=== PATIENT | female | born 1995 | race Two or more races ===

== ENCOUNTER → 2024-07-11 | Outpatient (CLI) | payer OTHER, SELFPAY ==
[2024-07-11 10:43] LABS: Potassium 5.2 mmol/L (3.5-5.1)
== END | disposition home or self-care (01) ==
LOC: LABSPEC 10:28
PROVIDERS: PCP Internal Medicine; Referring Provider Internal Medicine; Visit Provider Internal Medicine
DX: E87.5 Hyperkalemia (principal)
CPT/HCPCS: 84132

== ENCOUNTER → 2025-08-04 | Outpatient (CLI) | payer OTHER, SELFPAY ==
--- OUTSIDE RECORDS SUMMARY | 2025-08-04 09:39 | XMS RPT_ITS | CCD ---
Author Organization [facility] Inform ion Partnership [facility] Care Team Providers Care Watcher Automat Long Goods Name Role Phone Mariya Aparicio Referring Unavailable Mariya Aparicio Attending Unavailable Mariya Aparicio Primary Care Unavailable Unavailable Primary Care Provider OMA William Attending Unavailable Medications Current Medications Medication Drug Class(es) Dates Sig (Normalized) Sig (Original) adapalene 0.001 mg/mg / benzoyl peroxide 0.025 mg/mg topical gel (1 source) Retinoid Start: 05-08-2022 adapalene-benzoyl peroxide 0.1-2.5 % glwp Apply 1 Drop to affected area once daily. 05/08/2022 Active ZORYVE 0.3 % cream (1 source) Start: 07-04-2024 ZORYVE 0.3 % cream Apply 1 Drop to affected area once daily. 07/04/2024 Active Problems Problem Classification Problem Date Documented Da te Episodic/Chronic Fluid and electrolyte disorders (1 source) Hyperkalemia; Translations: [Hyperkalemia] Onset: 08-02-2024 Episodic Results Test Name Value Interpretation Reference Range Facil brennatj Serg 10-27-2024 CNOV Office Visit (OBGMEM ) JENNIFER GARDNER ([id number]) 1995 F Date Time Provider Department 10/27/24 7:25 AM OAM SÁNCHEZ OBJOSEPH During your visit today, we recorded the following information about you: Respiration Blood pressure Weight Last Period 18/minute 122/64 78.2 kg 10/03/24 Oma Sánchez MD 10/27/2024 10:44 AM Signed Summer is a 28 year old who presents for her 1st annual gynecologic exam without complaints. Thorough past history obtained/updated/revie wed with today's visit. Housing Relocation offered: Patient declines.. Still get period: Yes Qm x ~6dVB,moderate to heavy,mild dysmenorrhea (treated with NSAIDs) Bleeding amount bothersome: No Bleeding between periods: No Period symptoms: Acne; Breast tenderness; Cramps; Mood change; Pelvic pain control frequency: Sometimes (has used OCP in the past, mostly to manage acne) HPV vaccine: Yes; HPV:N/A Last pap smear: never History of abnormal pap: N/A Last mammogram: never Patient concerns for STD exposure: No. 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 History Comments: Sexual Activity: Never; No partner data on record Contraception: No contraception data on record Menstrual Tracking History Flowsheet Row Office Visit from 10/27/2024 in Obstetrics/Gynecology Period Cycle (Days) 24 Period Duration (Days) 6 Menstrual Flow Moderate PAST MEDICAL HISTORY Diagnosis Date Psoriasis PAST SURGICAL HISTORY Procedure Laterality Date TOOTH EXTRACTION x4 wisdom teeth FAMILY HISTORY Problem Relation Age of Onset Breast Cancer No Family History Cervical Cancer No Family History Ovarian cancer No Family History Uterine Cancer No Family History Colon Cancer No Family History Pancreatic Cancer No Family History Prostate Cancer No Family History SOCIAL HISTORY Social History Tobacco Use Smoking status: Never Smokeless tobacco: Never Vaping Use Vaping status: Never Used Substance Use Topics Alcohol use: Yes Comment: rare, social Drug use: Never REVIEW OF SYSTEMS Abdomen: No abdominal pain, nausea, vomiting, diarrhea, or constipation. Bladder: No dysuria, gross hematuria, urinary frequency, urinary urgency, or incontinence. Breast: No breast lumps, nipple d/c, overlying skin changes, redness or skin retraction and no SBE . Allergies and current medication updated:Yes SENSITIVE EXAM: The sensitive examination was discussed with the Patient or Patient's Authorized Planishing Press Operator. As applicable, any other physician, advance practice provider, medical student, or other health professional student that will be observing or involved in the sensitive examination for educational or training purposes was discussed with the Patient or Authorized Planishing Press Operator. The Patient or Authorized Planishing Press Operator has agreed to proceed with the sensitive examination. (Sensitive examination includes inspection and/or palpation of the breasts, pelvis, prostate and anorectal regions). EXAM: BP 122/64 Resp 18 Wt 172 lb 6.4 oz (78.2kg) LMP 10/03/2024 GENERAL: pleasant, female in no apparent distress HEENT: Normocephalic, atraumatic, mucus membranes moist, and no lesions NECK: Supple, full range of motion, no adenopathy, and thyroid normal DERMATOLOGY: Normal, without lesions, non-icteric, and non-hirsute BREAST: soft, non-tender, symmetric, no dominant mass, normal nipple-areolar complex, no lymphadenopathy, and no nipple discharge CHEST: Clear to auscultation, Normal inspiratory effort, and Regular rate and rhythm ABDOMEN: soft, non-tender, and no masses PELVIC: external genitalia normal, normal Bartholin's glands, urethra, [place]'s glands, no vulvar lesions, no cervical lesions, good vaginal support, physiologic discharge present, normal appearing perineal body and perianal region BIMANUAL: uterus normal size, shape and consistency, no adnexal masses, and non-tender RECTOVAGINAL: deferred. NEURO: alert and oriented x3,exam grossly non-focal EXTREMITIES: normal ASSESSMENT/PLAN: 1) Health maintenance: Pap done with reflex HPV. Mammogram starting age 40. Nutrition, exercise and routine health maintenance exams reviewed. Calcium/Vitamin D supplementation information provided. Colon cancer screening: start at age 45 HPV vaccine: completed series 2) Contraception: not yet sexually active- has done OCP in past to manage acne. 3) STD screening: Declined STD check. 4) Follow up one year or sooner as needed 5) Patient made aware results will be released to [facility] when available; if she is not active on [facility], she may contact office to get any results at her convenience (the office will contact (more content not included)... Normal [facility] PAP TESTon 10-27-2024 ADEQUACY Normal [facility] Comment on above: Order Comment: Speci men Type: FLUID SPECIMEN Ordering Facility: [facility] Address: [address] [place] [address] Result Comment: Sati sfactory for interpretation. Transformation zone present Performed By: #### L [id number] #### [facility] CLIA [id number] [address] [place] [address] [place] CASE REPORT Normal [facility] Comment on above: Order Comment: Speci men Type: FLUID SPECIMEN Ordering Facility: [facility] Address: [address] [place] [address] Result Comment: Gyne cologic Cytology Report Case: [id number] Authorizing Provider: Oma Sánchez MD Collected: 10/27/2024 08:20 AM Ordering Location: Obstetrics/Gynecology Received: 10/27/2024 11:37 AM First Screen: Vikas, Zully, CT, ASCP Specimen: Pap Test, ThinPrep, Cervix Performed By: #### L [id number] #### [facility] CLIA [id number] [address] [place] [address] [place] CLINICAL HISTORY, CYTOLOGY, SKEIN YARN DYER Routine Exam Normal [facility] Comment on above: Order Comment: Speci men Type: FLUID SPECIMEN Ordering Facility: [facility] Address: [address] [place] [address] Result Comment: Firs t Pap Smear Performed By: #### L [id number] #### [facility] CLIA [id number] [address] [place], [place] [id number] [place] FINAL PERFORMING LAB Normal [facility] Comment on above: Order Comment: Speci men Type: FLUID SPECIMEN Ordering Facility: [facility] Address: [address] [place] [address] Result Comment: Tech nical component, research associate quality control qc screening performed at [facility], [address] [place] [id number] CLIA# [id number] Diagnostic interpretation performed at [facility], [address] [place] [address] CLIA# [id number] Acid Tender: Chapo Bray M.D. Performed By: #### L [id number] #### [facility] CLIA [id number] [address] [place] [address] [place] INTERPRETATION, CYTOLOGY, SKEIN YARN DYER Normal [facility] Comment on above: Order Comment: Speci men Type: FLUID SPECIMEN Ordering Facility: [facility] Address: [address] [place] [address] Result Comment: Nega tive for intraepithelial lesion or malignancy. at 1159 EST Performed By: #### L [id number] #### [facility] CLIA [id number] [address] [place] [address] [place] LMP 10/03/2024 Normal [facility] Comment on above: Order Comment: Speci men Type: FLUID SPECIMEN Ordering Facility: [facility] Address: [address] [place] [address] Performed By: #### L [id number] #### [facility] CLIA [id number] [address] [place] [address] [place] PAP DISCLAIMER COMMENT The Pap Smear is a screening test for cervical cancer. False negative results occur with all screening tests, emphasizing the need for rescreening at recommended intervals, and clinical correlation. Normal [facility] Comment on above: Order Comment: Speci men Type: FLUID SPECIMEN Ordering Facility: [facility] Address: [address] [place] [address] Performed By: #### L [id number] #### [facility] CLIA [id number] [address] [place] [address] [place] PAP SUPERVISOR INCISING COMMENT This specimen has been analyzed by the ThinPrep Imaging System, an automated imaging and review system, which assists the laboratory in evaluating cells on ThinPrep Pap tests. Following automated imaging, selected cottrell from every slide are reviewed by a research associate quality control qc. Normal [facility] Comment on above: Order Comment: Speci men Type: FLUID SPECIMEN Ordering Facility: [facility] Address: [address] [place] [address] Performed By: #### L [id number] #### [facility] CLIA [id number] [address] [place] [address] [place] [address] [place] Potassiumon 07-11-2024 Potassium [Moles/Vol] 5.2 mmol/L High 3.5-5.1 [facility] Comment on above: Performed By: #### L [id number] #### [facility] [address] [place], [place], [address] SARS CoV 2 RNA(COVID 19), QU ALITATIVE NAATon 09-01-2021 SARS CoV 2 RNA Detected Abnormal NOT DETECTED [facility] Comment on above: Order Comment: 0 Result Comment: A Detected result indicates that the patient's specimen was positive for SARS-CoV-2 RNA. Test Method: Nucleic Acid Amplification Test including reverse shrimp packer polymerase chain reaction (RT-PCR) and shrimp packer mediated amplification (TMA). The test method meets the [place] Centers for Disease Control and prevention (CDC) pre departure and arrival requirement for viral test for COVID-19 dated October 07, 2020. Testing requirements for traveling may change with time. The patient is responsible for determining the test requirements for each nation while they are traveling. This test has been authorized by the FDA under an Emergency Use Authorization (EUA) for use by authorized laboratories. Please review the "Fact Sheets" and FDA authorized labeling available for health care providers and patients using the following websites: https://www.Amimon.com/home/Covid-19/HCP/NAAT/fact-sheet2 https://www.Amimon.[email or web address]/home/Covid-19/Patients/NAAT/ fact-sheet2 Due to the current public health emergency, [facility] is accepting samples from appropriate clinical sources collected using wide variety of swabs and transport media for COVID-19. Not detected test results derived from specimens received in non- commercially manufactured viral collection kits or those not yet authorized by FDA for COVID-19 testing should be cautiously evaluated and take extra precautions such as additional clinical monitoring, including collection of an additional specimen. Additional information about COVID-19 can be found at the [facility] website: [email or web address]. Performed By: #### 3 [id number] #### [facility] [address] [facility], [address] [place] [address] Molder Pipe Covering: Fredis Dotson MD Vital Signs Date Time Vital Sign Value Performing Clinician Ev guardado 10-27-2024 07:20-0500 Body weight 78.2 kg Oma Sánchez MD Work Phone: [facility] 10-27-2024 07:20-0500 Diastolic blood pressure 64 mm[Hg] Oma Sánchez MD Work Phone: [facility] 10-27-2024 07:20-0500 Respiratory rate 18 /min Oma Sánchez MD Work Phone: [facility] 10-27-2024 07:20-0500 Systolic blood pressure 122 mm[Hg] Oma Sánchez MD Work Phone: [facility] Encounters Encounter Date Encounter Type Care Provider Facility Start: 10-27-2024 End: 10-27-2024 ambulatory OMA SÁNCHEZ Facility:[facility] Start: 10-27-2024 End: 10-27-2024 Patient encounter procedure Oma Sánchez MD Work Phone: Obstetrics/Gynecology Comment on above: Encounter for gyneco logical examination (general) (routine) without abnormal findings (Primary Dx) Start: 10-27-2024 End: 10-27-2024 Patient encounter status Oma Sánchez MD Work Phone: [facility] Work Phone: Start: 07-11-2024 End: 07-11-2024 ambulatory [facility] Facility:[facility] Plan of Treatment Date Care Activity Detail Author Start: 11-12-2025 End: 11-12-2025 Patient encounter procedure 11/12/2025 9:00 AM EST Office Visit Obstetrics/Gynecology [address] [address] Oma Sánchez MD [address] [place] [address] Annual Obstetrics/Gynecolog y Comment on above: Annual Start: 05-11-2024 Covid-19 Vaccine ( season) Covid-19 Vaccine ( season) [facility] Start: 05-11-2024 Influenza vaccination Influenza Vacc ine (#1) [facility] Start: 06-21-2017 Urine microalbumin profile DTaP,Tdap,Td Vaccine (7 - Td or Tdap) [facility] Start: 2016 Screening for malign ant neoplasm of cervix Cervical Cancer Screening [facility] Start: 2013 Anxiety Screening Anxiety Screening [facility] Start: 2013 Depression Screening Depression Scre ening [facility] Start: 2013 Hepatitis C screening Hepatitis C Sc reening [facility] Start: 2013 HIV screening HIV Screening [facility] PAP TEST PAP TEST Lab Dick curry Encounter for gynecological examination (general) (routine) without abnormal findings 10/27/2024 8:20 AM EST [facility] Work Phone: Immunizations Immunization Date Immunization Notes Care Provider Fa cili 07-07-2021 influenza virus vacc ine, unspecified formulation Oma Sánchez MD Work Phone: [facility] 07-19-2012 human papilloma viru s vaccine, quadrivalent Oma Sánchez MD Work Phone: [facility] 02-27-2012 human papilloma viru s vaccine, quadrivalent Oma Sánchez MD Work Phone: [facility] 11-30-2011 human papilloma viru s vaccine, quadrivalent Oma Sánchez MD Work Phone: [facility] Payers Date Payer Category Payer Self-pay 2023 Private Health Insurance [facility] [employer] [id number] 2023 Unknown [id number] Unknown [id number] Social History Date Type Detail Facility Start: 10-27-2024 Tobacco smoking stat [facility] Never smoked tobacco [facility] Start: 10-27-2024 Tobacco use and exposure Smoke less tobacco non-user [facility] Start: 10-27-2024 Alcoholic beverage intake Curr ent drinker of alcohol (finding) [facility] Start: 10-27-2024 History of Social function [facility] Start: 10-27-2024 Tobacco use panel [facility] National Score (1-10 0), lower number is lower risk 73 [facility] Start: 10-27-2024 Alcohol Comment rare, social [facility] Start: 1995 Sex assigned at Female [facility] Start: 10-22-2024 Gender identity Identifies as female gender (finding) [facility] Instructions 10-27-2024 Patient Instructions Note Date & Type Note Facility 10-27-2024 Instructions Oma Sánchez MD - 10/27/2024 8:06 AM EST ACOG Screening Guidelines The following health screening schedule is recommended by the [employer] (ACOG). Some of these tests may be ordered or performed by your primary care doctor. Pap test screening The pap test looks at cells on the cervix (the opening from the vagina to the uterus) to look for cancer or pre-cancerous changes. These changes are caused by the human papillomavirus (HPV). Studies estimate that half of all women will test positive for this virus within 3 years of starting sexual activity. For young women with a normal immune system, 90% of HPV infections will resolve within 2 years. There is a vaccine available against some forms of HPV. This is recommended for girls and women age 9-45. For ages 9-14, two injections are given at 0 and 6 months. For ages 15-45, three injections are given at 0,2 and 6 months. Because this vaccine does not protect against all HPV types which can cause cervical cancer, women who received the vaccine still need pap tests. Pap smear screening should be started at age 21. The pap test should be done every 3 years from age 21-29. From age 30-65, pap smears can be done every 5 years if HPV test is negative or every 3 years if HPV testing is not done. For women over the age of 65, ACOG recommends against screening women who have had adequate prior screening and are not otherwise at high risk for cervical cancer. Women who have had a hysterectomy also do not need routine pap smear screening unless the pap smear was done for a cervical cancer or moderate to severe dysplasia. Breast cancer screening Mammogram should be performed every 1-2 years starting at age 40 and every year starting at age 50. Screening may be started earlier depending on family history. Cholesterol screening Lipid panel (cholesterol test) should be checked every 5 years starting at age 45. Diabetes screening Fasting glucose (blood sugar) test should be performed every 3 years starting at age 45. Colorectal cancer screening Starting at age 45, women should have a screening colonoscopy at least every 10 years. Screening may be started earlier depending on family history. Thyroid screening Thyroid function test (TSH) should be checked every 5 years starting at age 50. Bone mineral density screening All postmenopausal women age 65 and over and postmenopausal women with risk factors for osteoporosis should have a bone mineral density test performed. Risk factors include race, family history of osteoporosis, personal history of fractures, poor nutrition, smoking, heavy alcohol use, early menopause, low calcium intake and low body weight. Certain medical conditions and long-term use of some medications may also increase risk. Calcium and Vitamin D Supplementation (from the National Institutes of Health Office of Dietary Supplements 2011) Calcium is required by the body for blood vessel, muscle, hormone and nerve functioning. Most of the body's calcium is stored in the bones and teeth where it supports structure and function. Bone is continuously broken down and reformed. When bone breakdown exceeds formation, especially in postmenopausal women, bone loss can increase the risk of osteoporosis and fractures. In addition to low calcium intake, women who smoke, have a family history of osteoporosis, are thin, or , or who take certain medications such as cancer chemotherapy, seizure mediations and steroids are at increased risk of osteoporosis. The calcium requirements in women change with age. The National Institutes of Health (NIH) recommends: 1000mg elemental calcium for premenopausal women age 19-50 1200mg elemental calcium for postmenopausal women and all women over 50 Milk, yogurt, and cheese are rich natural sources of calcium and are the major food contributors in the [place]. For example, 8oz of milk (whole, lowfat or skim) contains about 300mg calcium, 8oz of yogurt contains 415mg. Nondairy sources include salmon and sardines and vegetables, such as [place]oese cabbage, kale, and broccoli. Foods fortified with calcium include many fruit juices, tofu and cereals. For more food calcium content information, visit http://ods.od.nih.gov/factsheets/calcium. Calcium supplements come in several different forms. Remember that the recommendations are for millgrams (mg) of elemental calcium which may be less than the total weight of the supplement. The amount of elemental calcium is required to be printed on the label. Calcium carbonate is the least expensive form. It must be taken on a full stomach to be properly absorbed. Some patients may experience gas or constipation. Calcium phosphate and calcium citrate may be taken either with or without food and tend to have less side effects but are generally more expensive. Because of its ability to neutralize stomach acid, calcium carbonate is found in some [id number] antacid products, such as Tums and Rolaids . Depending on its strength, each chewable pill or softchew provides 200 to 400 mg of elemental calcium. The percentage of calcium absorbed depends on the total amount of elemental calcium consumed at one time. Absorption is highest in doses <500mg. So a woman who takes 1,000mg/day of calcium from supplements should split the dose and take 500mg at two separate times during the day. Too much calcium can cause kidney stones, constipation, difficulty absorbing other nutrients and calcium buildup in blood vessels. Women under 50 should not exceed 2500mg/day (2000mg/day for women over 50) of calcium from food and supplements. Excessive alcohol and caffeine intake can inhibit absorption of calcium. Calcium can reduce the absorption of some medications if taken at the same time of day (bisphosphonates, thyroid medication, Phenytoin and other seizure medications, some antibiotics and iron supplements). Vitamin D promotes calcium absorption in the gut and maintains adequate blood levels of calcium and phosphate for normal bone growth and bone remodeling. Vitamin D also helps regulate cell growth as well as nerve, muscle and immune system function. Vitamin D is produced in the skin as a result of ultraviolet sunlight rays and must be altered in the liver and kidney to become its active form. Recommended intake according to the National Institutes of Health is 600 International Units (IU) for girls and women ages 1-70 and 800 IU for women over 70. Very few foods in nature contain vitamin D. The flesh of fatty fish (such as salmon, tuna, and mackerel) and fish liver oils are among the best sources. Small amounts of vitamin D are found in beef liver, cheese, mushrooms and egg yolks. Most people meet at least some of their vitamin D needs through exposure to sunlight. Season, time of day, length of day, cloud cover, smog, skin melanin content, and sunscreen are among the factors that affect UV radiation exposure and vitamin D synthesis. Despite the importance of the sun for vitamin D synthesis, it is prudent to limit exposure of skin to sunlight and avoid tanning beds. UV radiation is a carcinogen responsible for most of the estimated 1.5 million skin cancers that occur annually in the [place]. Lifetime cumulative UV damage to skin is also responsible for some age-associated dryness and other cosmetic changes. In supplements and fortified foods, vitamin D is available in two forms, D2 (ergocalciferol) and D3 (cholecalciferol). The two are equivalent at normal supplement doses. For women who require high supplement doses because of vitamin D deficiency, D3 may work better to raise blood levels. Some medications can prevent proper absorption of Vitamin D. These include laxatives, corticosteroids like prednisone, the seizure drugs phenobarbital and phenytoin, the weight-loss drug orlistat ( Xenical and AlliTM) and the cholesterol-lowering drug cholestyramine (Questran , LoCholest , and Prevalite ). Talk to your doctor about adjusting your recommended daily vitamin D dosage if you take these medications. You should not exceed 4000 mg of vitamin D supplementation daily unless specifically prescribed by your doctor. documented in this encounter [facility] Progress note 10-27-2024 Note Date & Type Note Facility 10-27-2024 Note HNO ID: [id number] Author: OMA SÁNCHEZ MD Service: ? Author Type: Physician Type: Progress Notes Filed: 10/27/2024 10:44 Note Text: Jennifer is a 28 year old who presents for her 1st annual gynecologic exam without complaints. Thorough past history obtained/updated/reviewed with today's visit. Housing Relocation offered: Patient declines.. Still get period: Yes Qm x ~6dVB,moderate to heavy,mild dysmenorrhea (treated with NSAIDs) Bleeding amount bothersome: No Bleeding between periods: No Period symptoms: Acne; Breast tenderness; Cramps; Mood change; Pelvic pain control frequency: Sometimes (has used OCP in the past, mostly to manage acne) HPV vaccine: Yes; HPV:N/A Last pap smear: never History of abnormal pap: N/A Last mammogram: never Patient concerns for STD exposure: No. 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 History Comments: Sexual Activity: Never; No partner data on record Contraception: No contraception data on record Menstrual Tracking History Flowsheet Row Office Visit from 10/27/2024 in Obstetrics/Gynecology Period Cycle (Days) 24 Period Duration (Days) 6 Menstrual Flow Moderate PAST MEDICAL HISTORY Diagnosis Date Psoriasis PAST SURGICAL HISTORY Procedure Laterality Date TOOTH EXTRACTION x4 wisdom teeth FAMILY HISTORY Problem Relation Age of Onset Breast Cancer No Family History Cervical Cancer No Family History Ovarian cancer No Family History Uterine Cancer No Family History Colon Cancer No Family History Pancreatic Cancer No Family History Prostate Cancer No Family History SOCIAL HISTORY Social History Tobacco Use Smoking status: Never Smokeless tobacco: Never Vaping Use Vaping status: Never Used Substance Use Topics Alcohol use: Yes Comment: rare, social Drug use: Never REVIEW OF SYSTEMS Abdomen: No abdominal pain, nausea, vomiting, diarrhea, or constipation. Bladder: No dysuria, gross hematuria, urinary frequency, urinary urgency, or incontinence. Breast: No breast lumps, nipple d/c, overlying skin changes, redness or skin retraction and no SBE . Allergies and current medication updated:Yes SENSITIVE EXAM: The sensitive examination was discussed with the Patient or Patient's Authorized [employer]ishing [employer] Operator. As applicable, any other physician, advance practice provider, medical student, or other health professional student that will be observing or involved in the sensitive examination for educational or training purposes was discussed with the Patient or Authorized [employer]ishing [employer] Operator. The Patient or Authorized [employer]ishing Press Operator has agreed to proceed with the sensitive examination. (Sensitive examination includes inspection and/or palpation of the breasts, pelvis, prostate and anorectal regions). EXAM: BP 122/64 Resp 18 Wt 172 lb 6.4 oz (78.2kg) LMP 10/03/2024 GENERAL: pleasant, female in no apparent distress HEENT: Normocephalic, atraumatic, mucus membranes moist, and no lesions NECK: Supple, full range of motion, no adenopathy, and thyroid normal DERMATOLOGY: Normal, without lesions, non-icteric, and non-hirsute BREAST: soft, non-tender, symmetric, no dominant mass, normal nipple-areolar complex, no lymphadenopathy, and no nipple discharge CHEST: Clear to auscultation, Normal inspiratory effort, and Regular rate and rhythm ABDOMEN: soft, non-tender, and no masses PELVIC: external genitalia normal, normal Bartholin's glands, urethra, [place]'s glands, no vulvar lesions, no cervical lesions, good vaginal support, physiologic discharge present, normal appearing perineal body and perianal region BIMANUAL: uterus normal size, shape and consistency, no adnexal masses, and non-tender RECTOVAGINAL: deferred. NEURO: alert and oriented x3,exam grossly non-focal EXTREMITIES: normal ASSESSMENT/PLAN: 1) Health maintenance: Pap done with reflex HPV. Mammogram starting age 40. Nutrition, exercise and routine health maintenance exams reviewed. Calcium/Vitamin D supplementation information provided. Colon cancer screening: start at age 45 HPV vaccine: completed series 2) Contraception: not yet sexually active- has done OCP in past to manage acne. 3) STD screening: Declined STD check. 4) Follow up one year or sooner as needed 5) Patient made aware results will be released to [employer] when available; if she is not active on [employer], she may contact office to get any results at her convenience (the office will contact her directly with abnormal results, a letter with normal results will be sent otherwise). Oma Sánchez MD [facility] History of Present illness Narrative 10-27-2024 Oma Sánchez MD - 10/27/2024 7:48 AM EST Note Date & Type Note Facility 10-27-2024 History of Presen t illness Narrative Jennifer is a 28 year old who presents for her 1st annual gynecologic exam without complaints. Thorough past history obtained/updated/reviewed with today's visit. Housing Relocation offered: Patient declines.. Still get period: Yes Qm x ~6dVB,moderate to heavy,mild dysmenorrhea (treated with NSAIDs) Bleeding amount bothersome: No Bleeding between periods: No Period symptoms: Acne; Breast tenderness; Cramps; Mood change; Pelvic pain control frequency: Sometimes (has used OCP in the past, mostly to manage acne) HPV vaccine: Yes; HPV:N/A Last pap smear: never History of abnormal pap: N/A Last mammogram: never Patient concerns for STD exposure: No. 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 History Comments: Sexual Activity: Never; No partner data on record Contraception: No contraception data on record Menstrual Tracking History Flowsheet Row Office Visit from 10/27/2024 in Obstetrics/Gynecology Period Cycle (Days) 24 Period Duration (Days) 6 Menstrual Flow Moderate PAST MEDICAL HISTORY Diagnosis Date Psoriasis PAST SURGICAL HISTORY Procedure Laterality Date TOOTH EXTRACTION x4 wisdom teeth FAMILY HISTORY Problem Relation Age of Onset Breast Cancer No Family History Cervical Cancer No Family History Ovarian cancer No Family History Uterine Cancer No Family History Colon Cancer No Family History Pancreatic Cancer No Family History Prostate Cancer No Family History SOCIAL HISTORY Social History Tobacco Use Smoking status: Never Smokeless tobacco: Never Vaping Use Vaping status: Never Used Substance Use Topics Alcohol use: Yes Comment: rare, social Drug use: Never REVIEW OF SYSTEMS Abdomen: No abdominal pain, nausea, vomiting, diarrhea, or constipation. Bladder: No dysuria, gross hematuria, urinary frequency, urinary urgency, or incontinence. Breast: No breast lumps, nipple d/c, overlying skin changes, redness or skin retraction and no SBE . Allergies and current medication updated:Yes SENSITIVE EXAM: The sensitive examination was discussed with the Patient or Patient's Authorized [employer] Press Operator. As applicable, any other physician, advance practice provider, medical student, or other health professional student that will be observing or involved in the sensitive examination for educational or training purposes was discussed with the Patient or Authorized [employer] Operator. The Patient or Authorized [employer] Operator has agreed to proceed with the sensitive examination. (Sensitive examination includes inspection and/or palpation of the breasts, pelvis, prostate and anorectal regions). EXAM: BP 122/64 Resp 18 Wt 172 lb 6.4 oz (78.2kg) LMP 10/03/2024 GENERAL: pleasant, female in no apparent distress HEENT: Normocephalic, atraumatic, mucus membranes moist, and no lesions NECK: Supple, full range of motion, no adenopathy, and thyroid normal DERMATOLOGY: Normal, without lesions, non-icteric, and non-hirsute BREAST: soft, non-tender, symmetric, no dominant mass, normal nipple-areolar complex, no lymphadenopathy, and no nipple discharge CHEST: Clear to auscultation, Normal inspiratory effort, and Regular rate and rhythm ABDOMEN: soft, non-tender, and no masses PELVIC: external genitalia normal, normal Bartholin's glands, urethra, [place]'s glands, no vulvar lesions, no cervical lesions, good vaginal support, physiologic discharge present, normal appearing perineal body and perianal region BIMANUAL: uterus normal size, shape and consistency, no adnexal masses, and non-tender RECTOVAGINAL: deferred. NEURO: alert and oriented x3,exam grossly non-focal EXTREMITIES: normal ASSESSMENT/PLAN: 1) Health maintenance: Pap done with reflex HPV. Mammogram starting age 40. Nutrition, exercise and routine health maintenance exams reviewed. Calcium/Vitamin D supplementation information provided. Colon cancer screening: start at age 45 HPV vaccine: completed series 2) Contraception: not yet sexually active- has done OCP in past to manage acne. 3) STD screening: Declined STD check. 4) Follow up one year or sooner as needed 5) Patient made aware results will be released to [employer] when available; if she is not active on [employer], she may contact office to get any results at her convenience (the office will contact her directly with abnormal results, a letter with normal results will be sent otherwise). Oma Sánchez MD documented in this encounter [facility] Evaluation note Note Date & Type Note Facility Evaluation note Diagnosis Encounter for gynecological examination (general) (routine) without abnormal findings- Primary documented in this encounter [facility] Summary Purpose Family History No Family History Records FoundNo Family History Records FoundNo Family History Records Found Advance Directives No Advanced Directives Records FoundNo Advanced Directives Records FoundNo Advanced Directives Records Found Additional Source Comments INFORMATION SOURCE (unrecogn ized section and content) DATE CREATED AUTHOR 09/01/2021 [facility] DATE CREATED AUTHOR AUTHOR'S ORGANIZ ATION 08/05/2024 [facility] DATE CREATED AUTHOR AUTHOR'S ORGANIZ ATION 11/06/2024 [facility] Source Comments (unrecognize d section and content) In the event this informatio n is protected by the Federal Confidentiality of Alcohol and Drug Abuse Patient Records regulations: The Federal rules restrict any use of the information to criminally investigate or prosecute any alcohol or drug abuse patient.[facility] Reason for Visit (unrecogniz ed section and content) Reason Comments [facility] New Patient FOR RECORDS PERTAINING TO PATIENTS WHO ARE OR HAVE BEEN ENROLLED IN A CHEMICAL DEPENDENCY/SUBSTANCEABUSE PROGRAM, SOME INFORMATION MAY BE OMITTED. This clinical summary was aggregated from multiple sources. Caution should be exercised in using it in the provision of clinical care. This summary normalizes information from multiple sources, and as a consequence, information in this document may materially change the coding, format and clinical context of patient data. In addition, data may be omitted in some cases. CLINICAL DECISIONS SHOULD BE BASED ON THE PRIMARY CLINICAL RECORDS. [employer] [facility]. provides no warranty or guarantee of the accuracy or completeness of information in this document.
[2025-08-04 13:10] LABS: AST(SGOT) 23 U/L (<=31); Alanine Aminotransfer ALT/SGPT 17 U/L (<=34); Cholesterol 192 mg/dL (<=200); Low Density Lipoprotein Calc. 121 mg/dL; Triglycerides 137 mg/dL; Very Low Density Lipoprotein 27 mg/dL (5-40); cholesterol:hdl ratio screen 4.14
== END | disposition home or self-care (01) ==
LOC: CIMLAB 09:13
PROVIDERS: PCP Internal Medicine; Referring Provider Physician Assistant; Visit Provider Physician Assistant
DX: L70.0 Acne vulgaris (principal)
CPT/HCPCS: 36415; 80061; 84450; 84460